=== PATIENT | female | born 1970 | race Caucasian/White ===

== ENCOUNTER 2021-02-20 08:43 | Observation (INO) | payer OTHER, SELFPAY ==
[2021-02-20 09:57] LABS: #Eosinphils 0.1 10x3/uL (0.0-0.5); #Monocytes 0.6 10x3/uL (0.0-1.1); #Neutrophils 7.9 10x3/uL (1.5-8.4); %Basophils 0.4 % (0.0-2.0); %Eosinophils 0.5 % (0.0-6.0); %Lymphocytes 13.2 % (18.0-47.0); %Monocytes 5.7 % (0.0-10.0); Hemoglobin 12.9 g/dL (12.0-15.5); Mean Corpuscular HGB CONC 30.9 g/dL (32.0-36.0); Mean Corpuscular Hemoglobin 27.4 pg (27.0-33.0); Mean Corpuscular Volume 88.7 fl (81.6-98.3); Platelet Count 394 10x3/uL (150-450); RBC Distribution Width 12.6 % (11.5-14.5); White Blood Cell (WBC) Count 9.8 10x3/uL (3.5-10.5)
[2021-02-20] MEDS ORDERED: Mag-Al Plus 1200 MG/1200 MG/120 MG/30 ML UDCUP ONE (10:30)
[2021-02-20] MEDS ORDERED: Lidocaine Viscous Sol 2% 15 ml UD Cup ONE (10:30)
[2021-02-20 10:41] LABS: ALT (SGPT) 14 U/L (8-55); AST (SGOT) 19 U/L (5-34); Albumin 4.9 g/dL (3.5-5.0); Alkaline Phosphatase 82 U/L (40-110); Anion Gap 17 mmol/L (10-20); BUN (Urea Nitrogen) 11 mg/dL (9.8-20.1); Bilirubin, Total 0.5 mg/dL (0.2-1.2); Calc. Creatinine Clearance 0 mL/min (70-130); Carbon Dioxide 19 mmol/L (22-29); Chloride 107 mmol/L (98-107); Globulin 3.3 g/dL (2.4-3.5); Glucose 92 mg/dL (70-105); Potassium 4.1 mmol/L (3.5-5.1); Protein, Total 8.2 g/dL (6.0-8.3); Sodium 139 mmol/L (136-145)
[2021-02-20 10:59] LABS: Calcium 9.8 mg/dL (7.8-10.44)
[2021-02-20 13:39] LABS: Troponin I Less than 0.010 ng/mL (< 0.028)
[2021-02-20 13:55] LABS: Free T4 (Free Thyroxine) 0.89 ng/dL (0.70-1.48)
[2021-02-20] MEDS ORDERED: Calcium Carbonate 500 MG ChewTAB PO PRN (14:11)
[2021-02-20] MEDS ORDERED: Nitroglycerin 0.4 MG TAB (25 Tab Bottle) SL PRN (14:11)
[2021-02-20] MEDS ORDERED: Acetaminophen 325 MG TAB PO PRN (14:11)
[2021-02-20] MEDS ORDERED: Sodium Chloride 0.65% Nasal 44 ML BOT EA NARE PRN (14:11)
[2021-02-20] MEDS ORDERED: Ondansetron PF 4 MG/2 ML Vial IVP PRN (14:11)
[2021-02-20] MEDS ORDERED: Zolpidem Tartrate 5 MG TAB PO PRN (14:11)
[2021-02-20] MEDS ORDERED: Eucerin (Mineral Oil/Petrolatum,White) 30 gm Jar TOP PRN (14:11)
[2021-02-20] MEDS ORDERED: Loperamide HCl 2 MG CAP PO PRN (14:11)
[2021-02-20] MEDS ORDERED: Guaifenesin DM 100-10/5 ML UDCUP PO PRN (14:11)
[2021-02-20] MEDS ORDERED: Senokot S 8.6-50 MG TAB PO PRN (14:11)
[2021-02-20] MEDS ORDERED: Loratadine 10 MG TAB PO PRN (14:11)
[2021-02-20] MEDS ORDERED: hydrALAZINE 20 MG/ML VIAL SLOW IVP PRN (14:11)
[2021-02-20] MEDS ORDERED: Bisacodyl 10 MG SUPP PR PRN (14:11)
[2021-02-20] MEDS ORDERED: HYDROcodone/Acetaminophen 5/325 mg Tablet PO PRN (14:11)
[2021-02-20] MEDS ORDERED: Ondansetron ODT 4 MG TAB PO PRN (14:11)
[2021-02-20] MEDS ORDERED: Cepastat Lozenges 1 LOZ PO PRN (14:11)
[2021-02-20 15:51] LABS: Troponin I Less than 0.010 ng/mL (< 0.028)
[2021-02-20 19:39] VITALS: BMI 24.0
[2021-02-20] MEDS: Famotidine 20 MG TAB PO SCH (20:22)
[2021-02-21 02:31] LABS: SARS-CoV-2 PCR by NAA Not Detected (NotDetected)
[2021-02-21 05:37] LABS: Cardiac Risk 3.3 (Less than 4.5)
[2021-02-21] MEDS: Famotidine 20 MG TAB PO SCH (09:23)
[2021-02-21 12:12] VITALS: BP 119/78; TEMP 97.4
== END 2021-02-21 16:06 | disposition home or self-care (01) ==
LOC: CSHERS 08:43 → CSHTELE 15:20
PROVIDERS: ADMIT Internal Medicine; ATTEND Internal Medicine
DX: R07.9 Chest pain, unspecified (principal); I49.3 Ventricular premature depolarization; I34.1 Nonrheumatic mitral (valve) prolapse; F41.9 Anxiety disorder, unspecified; Z20.822 Contact with and (suspected) exposure to COVID-19
CPT/HCPCS: 71045; 76705; 80053; 80061; 84439; 84443; 84484; 85025; 87635; 93005; 93306; G0378; U0003; U0005